=== PATIENT | female | born 1990 | race Caucasian/White ===

== ENCOUNTER 2017-02-28 10:51 | Emergency (ER) | payer SELFPAY ==
[~2017-02-28] VITALS: Ht 162.6 cm; Wt 72.5 kg
[~2017-02-28 10:51] MED LIST: CLIN150 PO; IBUP800T23 PO
[2017-02-28 10:53] VITALS: BP 133/74; PULSE 99; RESP 20; TEMP 98.3; O2SAT 100
--- NOTE | 2017-02-28 11:09 | PD ---
HPI . left wrist pain Chief Complaint: Injury Time Seen by Provider: 11:09 Travel History International Travel<30 days: No Contact w/Intl Traveler<30days: No Traveled to known affect area: No History of Present Illness HPI 26-year-old female here with complaints of left wrist pain. She was horse- playing with her family member and hurt her wrist 2 days ago. She tells me that the pain has been gradually worsening. She said it's especially worse at night when she is trying to sleep. She is complaining of pain in the left distal radius. She rated as 5/10. There is also pain with movement of the thumb. She denies any other injuries. PFSH Past Medical History Cardiovascular Problems: No Diminished Hearing: No Endocrine: No Gastrointestinal Disorders: No Genitourinary: No Immune Disorder: No Implanted Vascular Access Dvce: No Musculoskeletal: No Neurologic: No Psychiatric: No Reproductive: No Respiratory: No Pancreatitis: Yes ?: Not LMP: 02/27/17 Tubal Ligation: Yes Past Surgical History Abdominal Surgery: Yes (EXPLORATORY) Other Surgery: Yes Social History Alcohol Use: Yes Tobacco Use: Yes Substance Use: No Allergies-Medications (Allergen,Severity, Reaction): Coded Allergies: No Known Allergies (Unverified , 02/28/17) Reported Meds & Prescriptions Reported Meds & Active Scripts Active Ibuprofen 800 Mg Tab 800 Mg PO TID Cleocin (Clindamycin HCl) 150 Mg Cap 300 Mg PO Q8 10 Days Review of Systems General / Constitutional: No: Fever Eyes: No: Visual changes HENT: No: Headaches Cardiovascular: No: Chest Pain or Discomfort Respiratory: No: Shortness of Breath Gastrointestinal: No: Abdominal Pain Genitourinary: No: Dysuria Musculoskeletal: Positive: Pain (left wrist pain) Skin: No Rash Neurologic: No: Weakness Psychiatric: No: Depression Endocrine: No: Polydipsia Hematologic/Lymphatic: No: Easy Bruising Physical Exam Narrative GENERAL: AAO x 3, no acute distress, Well-nourished, well-developed patient. SKIN: Warm and dry. No visible rashes or bruising. Mild edema to the left wrist HEAD: Normocephalic and atraumatic. EYES: No scleral icterus. No injection or drainage. EOM intact, PERRLA ENT: No nasal drainage noted. Mucous membranes pink. Airway patent. NECK: Supple, trachea midline. No JVD. CARDIOVASCULAR: Regular rate and rhythm without murmurs, gallops, or rubs. RESPIRATORY: Breath sounds equal bilaterally. No accessory muscle use. No rhonchi or rales. GASTROINTESTINAL: Abdomen soft, non-tender, nondistended. EXTREMITIES: No cyanosis. Mild edema to the left wrist, radial and ulnar pulses normal. There is tenderness to the distal radius of the left wrist. Pain with movement of the left thumb BACK: No obvious deformity. 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 Data Data Last Documented VS Vital Signs Date Time Temp Pulse Resp B/P Pulse Ox O2 Delivery O2 Flow Rate FiO2 02/28/17 10:53 98.3 99 20 133/74 100 Room Air Orders Wrist, Complete ([id number]) (02/28/17 11:11) [facility] Medical Decision Making Medical Screen Exam Complete: Yes Emergency Medical Condition: Yes Medical Record Reviewed: Yes Differential Diagnosis wrist sprain, wrist fracture, less likely dislocation Narrative Course 26-year-old female here with left wrist pain after an injury. She does have tenderness to the left distal radius. X-ray ordered to rule out bony normality. I do not suspect there will be any. X-ray without any acute abnormality. I discussed with the patient. Explained this could be a sprain. Mayco wrap provided here in the emergency department. RICE [id number] Tylenol or Motrin for pain I advised if her pain persists past 7-10 days, follow up with her primary care provider. Patient verbalized understanding of instructions, questions were answered, and thanked me for their care. I advised them if their condition worsens, please return to the nearest emergency room for further care. Diagnosis Primary Impression: Wrist pain, acute Qualified Code: M25.532 - Acute pain of left wrist Patient Instructions: General Instructions Additional Instructions: Rest the affected area as much as possible. Ice this area for 15-20 minutes at a time. You can do this every hour or as much as tolerated. Keep this area compressed (mayco bandage) as tolerated. Elevate this area. Use ibuprofen as needed for pain and inflammation. Disposition: 01 DISCHARGE HOME Condition: Stable Cheyenne Kasper Feb 28, 2017 11:09
--- NOTE | 2017-02-28 11:43 | RADRPT ---
EXAM DATE/TIME: 02/28/2017 11:33 [facility] COMPARISON: No previous studies available for comparison. INDICATIONS : Left wrist pain, hurt yesterday playing with her nephew. MEDICAL HISTORY : None. SURGICAL HISTORY : None. ENCOUNTER: Initial ACUITY: 1 day PAIN SCORE: 7/10 LOCATION: Left wrist FINDINGS: Three view examination of the left wrist demonstrates no soft tissue swelling, dislocation, or fractu re. The carpal bones are in normal alignment. The joint spaces are maintained. Bony mineralization is normal. CONCLUSION: Normal examination for a patient of this age. Nitin Bain MD on February 28, 2017 at 11:41 Board Certified Radiologist. This report was verified electronically.
== END 2017-02-28 12:06 | disposition home or self-care (01) ==
LOC: NEPK 10:51
DX: M25.532 Pain in left wrist (principal); Z72.0 Tobacco use; Z87.19 Personal history of other diseases of the digestive system; Y93.83 Activity, rough housing and horseplay
CPT/HCPCS: 73110; 99283